=== PATIENT | female | born 1960 | race Caucasian/White ===

== ENCOUNTER 2024-12-06 15:50 | Emergency (ER) | payer MEDICARE, OTHER, SELFPAY ==
[2024-12-06] VITALS (17 sets, daily range): BP systolic 81–140; BP diastolic 50–69; BMI 24.5
--- NOTE | 2024-12-06 15:56 | ED.GENMED ---
History of Present Illness
General
Chief Complaint: Musculo-Skeletal Complaint
Source: patient
Exam Limitations: none
Time Seen by Provider: 12/06/24 15:54
History of Present Illness
History of Present Illness:
See MDM
Past History
Past History
ED Past Medical History: Seizures, Other (Lymes, transverse myelitis) and Other (OA)
ED Past Surgical History: Cholecystectomy, Orthopedic and Other (fistula repair early )
Social History
Tobacco: Non-smoker
Personal:
Living: with family
Employment: Disabled
Phy Exam
Physical Exam
Physical Exam:
See MDM
Course
Orders/Labs/Results
Orders:
Orders
12/06/24 15:54
HYDROmorphone [Dilaudid] 0.5 mg IV NOW STA
Hip, Right 2-3 Views [CR Hip - RT w/wo Pel 2-3 Vw*] Urgent
Comment:
Reason For Exam: R hip pain
Include a pelvis x-ray?: No
12/06/24 16:01
Propofol [Diprivan] 20 ml .ROUTE .STK-MED
12/06/24 17:20
HYDROmorphone [Dilaudid] 0.5 mg .ROUTE .STK-MED ONE
HYDROmorphone [Dilaudid] 0.5 mg IV NOW STA
12/06/24 19:16
CR Hip - RT without Pel 1 Vw Urgent
Reason For Exam: post reduction
Vital Signs
Initial and Last Documented VS:
Initial Vital Signs
BP
140/58
12/06/24 15:56
Last Documented Vital Signs
Temp Pulse Resp BP Pulse Ox
98.5 F 70 16 111/66 99
12/06/24 19:45 12/06/24 19:45 12/06/24 19:45 12/06/24 19:45 12/06/24 19:45
Procedures
Moderate Sedation
ASA Risk Score: Class II
Chart and allergies reviewed: Yes
Consent for anesthesia obtained: Yes
Time out completed (validating right patient & procedure): Yes
Moderate Sedation Start Time(when first medication is given): 19:05
History of difficult intubation: No
Airway free of obstruction: Yes
Patient has a gag reflex: Yes
Patient is able to open mouth: Yes
Patient has no dentures: Yes
Patient has no loose teeth: Yes
Medication administered by Provider during Moderate Sedation: IV Propofol (mg)
Total dose administered: 150
Time drug administered: :
Moderate Sedation Procedure End Time: :
Joint/Fracture Reduction
Right Anterior Lateral Hip:
Indication for procedure:: Right hip dislocation
Procedure completed by: Jose C Galvan DO
Consent form signed: Yes
Joint reduced: with anesthesia sedation
Injury was: closed
Further treatement: needs re-check only
Post reduction exam: stable
Capillary Refill: normal
Peripheral Pulses: dorsalis pedis (right): 2+
MDM/Problems Addressed
Differential Diagnosis Includes:
HPI and MDM Narrative:
64-year-old female presenting for evaluation of right hip pain. Patient was reaching over and she felt a pop in her right hip. She just had a hip replacement about 3 weeks ago. She denies numbness or tingling
On exam, patient has a shortened and internally rotated leg. Exam consistent with likely hip dislocation. Patient is requesting pain medicine. She has what appears to be allergies to narcotics but patient does not believe that the allergy is
true. Patient feels comfortable trying IV Dilaudid
Physical exam
General: Mildly uncomfortable
HEENT: protecting airway
Neck: appears supple
CV: No evidence of cyanosis
Resp: No accessory muscle use
Abd: Non-distended
Extremities: Shortened and internally rotated right leg. Distal extremity neurovascular intact
Neuro: alert
Psych: Normal affect
Skin: Intact
Problems Addressed including Acute and Chronic Conditions affecting care:
1. Right hip dislocation
Acuity: acute
Prognosis: unstable
Details: Will have patient sign consent for sedation and reduction
Updates
Patient tolerated sedation well and the procedure well. Postreduction film shows good reduction and patient feels comfortable going home. Knee immobilizer placed
Differential Diagnosis (but not limited to): Hip fracture, hip dislocation
Testing considered: Pelvic x-ray
Drug therapy (if applicable): OTC meds, please see d/c instruction regarding Rx drugs
Amount and/or Complexity of Data Reviewed
Clinical info obtained from: Patient
External data reviewed: N/A
Labs I independently reviewed (but not limited to): N/A
Radiology: X-ray independently reviewed: Dislocated right hip
Pulse Ox: not hypoxic
EKG independently reviewed: N/A
Filter Machine Operator: N/A
Critical Care: N/A
Risk of Complication:
Social Determinants of health: Good social support
Discussed with other providers: N/A
Escalation of Care includes Admit/Obs: After being observed in the Emergency Department, pt stable for discharge.
Occasional wrong word or 'sound a like' substitutions may have occurred due to the inherent limitations of voice recognition software. Read the chart carefully and recognize, using context, where substitutions have occurred.
*Critical Care Note
Total Time (30-74mins, 75-104mins- exclusive of procedures): Not Applicable
ED Attending Note
-
Portions of this chart may have been created with voice recognition software.� Occasional wrong word or��sound alike� substitutions may have occurred due to the inherent limitations of voice recognition software.
Discharge Plan
Departure
Patient Disposition: Home (Routine Discharge)
Date of Disposition: 12/06/24
Time of Disposition: 20:16
Patient with high blood pressure during this ER visit?: No
Discharge Problem:
Anterior dislocation of right hip
Instructions: Hip Dislocation (DC), MODERATE SEDATION ADULT
Prescriptions:
No Action
multivitamin [Multi-Day] 1 EACH tablet
1 tab PO DAILY
gabapentin 100 MG capsule
600 mg PO BID
atomoxetine [Strattera] 80 MG capsule
80 mg PO DAILY
venlafaxine 75 MG tablet
150 mg PO DAILY
etanercept [Enbrel] 50 MG/ML syringe
50 mg SQ TH
brivaracetam [Briviact] 100 MG tablet
100 mg PO BID
pantoprazole 40 MG tablet,delayed release (DR/EC)
40 mg PO DAILY
mupirocin 1 APPLIC ointment
1 applic intranasal BID Qty: 1 0RF
Patient Comments:
last dose was this am, 12/30/21
cefadroxil 500 MG capsule
500 mg PO Q12H Qty: 28 0RF
Rx Instructions:
1 every 12 hours x 14 days to prevent infection
Sent to [facility]
acetaminophen 325 MG tablet
650 mg PO Q4HWA 0RF
aspirin 325 MG tablet
325 mg PO DAILY 0RF
magnesium hydroxide 30 ML suspension
30 ml PO DAILYPRN PRN (Reason: constipation) 0RF
docusate sodium 100 MG capsule
100 mg PO BID 0RF
naproxen sodium [Aleve] 220 MG tablet
1 tab PO BID Qty: 0 0RF
Rx Instructions:
scheduled dosing x 7 days
take with food
oxycodone 5 MG tablet
5 mg PO Q6HPRN PRN (Reason: moderate-severe pain) Qty: 30 0RF
Rx Instructions:
1 tab moderate pain or 2 if pain severe
Dx total joint replacement
ongoing therapy
Saccharomyces boulardii [Florastor] 250 MG capsule
250 mg PO BID Qty: 1 0RF
Referrals:
Aakash Ramirez MD [Family Provider] -
Activity Restrictions/Additional Instructions:
Please return for any worsening symptoms.
You may return at any time if you have further concerns.
Please follow up with your orthopedist at the first available appointment, preferably this week.
Thank you for choosing [facility].
Interventions
Interventions:
*Risk Screen - Suicide Last Done: 12/06/24 15:53
*General Assessment Last Done: 12/06/24 15:53
*Neglect/Abuse Screening Last Done: 12/06/24 15:53
*ED COVID-19 Vaccine History Last Done: 12/06/24 19:20
ED-Musculoskeletal Assessment Last Done: 12/06/24 15:53
Discharge Date and Time
Print Language: AFGHAN
[2024-12-06] MEDS: DILAUDID 0.5 MG IV ×2 (16:05→17:21)
== END 2024-12-06 20:49 | disposition home or self-care (01) ==
LOC: EMR 15:50
PROVIDERS: EMERGENCY PHYSICIAN Student in an Organized Health Care Education/Training Program; FAMILY PHYSICIAN Orthopaedic Surgery
DX: T84.020A Dislocation of internal right hip prosthesis, initial encounter (principal); Y79.2 Prosthetic and other implants, materials and accessory orthopedic devices associated with adverse incidents; Z90.49 Acquired absence of other specified parts of digestive tract
CPT/HCPCS: 99152; 27265; 96374; 96376; 99285; 73501; 73502

== ENCOUNTER → 2025-01-13 08:32 | Day surgery (SDC) | payer MEDICARE, OTHER, SELFPAY ==
[2025-01-13] VITALS (27 sets, daily range): BP systolic 88–147; BP diastolic 35–112; BMI 24.3
[2025-01-13 03:00] LABS: % Basophils 0.8 % (0-2); % Eosinophils 2.4 % (0-6); % Immature Granulocytes 0.3 % (0-0.5); % Lymphocytes 44.5 % (20.5-51.1); Absolute Basophils 0.1 10^3/uL (0-0.2); Absolute Eosinophils 0.2 10^3/uL (0-0.7); Absolute Lymphocytes 2.8 10^3/uL (1.2-3.4); Absolute Monocytes 0.8 10^3/uL (0.1-0.6); Absolute Neutrophils 2.5 10^3/uL (1.4-6.5); Hematocrit 33.4 % (37.0-47.0); Hemoglobin 11.4 g/dL (12.0-16.0); Mean Corp Hgb Conc. 34.1 g/dL (33.0-37.0); Mean Corpuscular Hgb 34.1 pg (27.0-31.0); Nucleated Red Blood Cells % 0 %; Platelet Count 237 10^3/uL (130-400); Red Blood Cell Count 3.34 10^6/uL (4.20-5.40); Red Cell Dist. Width 12.1 % (11.5-14.5); White Blood Cell Count 6.3 10^3/uL (4.8-10.8)
[2025-01-13] MEDS: DILAUDID 1 MG IV ×2 (03:01→05:10)
[2025-01-13] MEDS: ZOFRAN 4 MG IV (03:02)
[2025-01-13 03:21] LABS: ALT (SGPT) 36 U/L (0-35); Albumin 4.4 g/dl (3.5-5.0); Blood Urea Nitrogen 22 mg/dl (7-17); Calcium 9.5 mg/dl (8.4-10.2); Carbon Dioxide 26 mmol/L (22-30); Chloride 108 mmol/L (98-107); Estimated Creatinine Clearance 58 ml/min; Glucose 99 mg/dl (70-99); Sodium 138 mmol/L (135-145); Total Bilirubin 0.5 mg/dl (0.2-1.3); Total Protein 6.4 g/dl (6.3-8.2); eGFR > 60.00
[2025-01-13 04:13] LABS: Potassium 4.4 mmol/L (3.5-5.1)
[2025-01-13 04:31] LABS: AST (SGOT) 43 U/L (14-36); Alkaline Phosphatase 92 U/L (38-126)
--- NOTE | 2025-01-13 04:32 | ED.GENMED ---
History of Present Illness
General
Chief Complaint: Musculo-Skeletal Complaint
Source: patient and spouse
Exam Limitations: none
Time Seen by Provider: 01/13/25 02:44
Nursing documentation reviewed up to this point in time: agreed with
History of Present Illness
History of Present Illness:
This a pleasant 64-year-old female who presents with right hip pain after probable dislocation. She was in bed and rolled over and felt her hip pop out of its socket. She had a hip replacement at the end of October of this year. She states that she
has had 1 other hip dislocation since the procedure. Patient denies any new trauma or any other issues with the hip.
Past History
Past History
ED Past Medical History: Seizures, Other (Lymes, transverse myelitis) and Other (OA)
ED Past Surgical History: Cholecystectomy, Orthopedic and Other (fistula repair early )
Social History
Tobacco: Non-smoker
Personal:
Living: with family
Employment: Disabled
Review of Systems
Review of Systems
Allergies reviewed?: Yes
Skin: Reports no symptoms
Psychiatric: Reports anxiety
Phy Exam
General Physical Exam
General Presentation: moderate distress
General age: appears stated age
General Skin: warm and dry
General Habitus: normal
General Mental: alert
General Hydration: appears well hydrated
ENT Exam
ENT Exam: EOMI, pharynx normal, neck supple and normocephalic
Eye Exam
Eye Exam: PERRL, cornea clear and conjunctiva normal
Cardiovascular Exam
Cardiovascular Exam: regular rate/rhythm, no edema and normal peripheral pulses
Pulmonary Exam
Pulmonary Exam: lungs clear, no respiratory distress, no rales, no crackles, no rhonchi, no stridor, no wheezing and no cough
Gastrointestinal Exam
Gastrointestinal Exam: normal bowel sounds, non tender, soft, no organomegaly, no pulsatile mass and non distended
Neurological Exam
Neurological Exam: alert, oriented x3, no motor deficits and speech normal
Musculoskeletal Exam
Musculoskeletal Exam: joint swelling and other (Limited range of motion in the right hip with leg shortening.)
Skin Exam
Skin Exam: normal color, warm/dry, no rash and no petechia
Psychiatric Exam
Psychiatric Exam: normal mood/affect
Course
Orders/Labs/Results
Orders:
Orders
01/13/25 02:45
CBC/With Diff [Complete Blood Count/With Diff] Urgent
Comprehensive Metabolic Panel Urgent
01/13/25 02:53
HYDROmorphone [Dilaudid] 1 mg IV NOW STA
Ondansetron Injectable [Zofran] 4 mg IV NOW STA
Hip, Right 2-3 Views [CR Hip - RT w/wo Pel 2-3 Vw*] Urgent
Comment:
Reason For Exam: hip doslocation
Include a pelvis x-ray?: Yes
01/13/25 03:19
Propofol [Diprivan] 20 ml .ROUTE .STK-MED
01/13/25 03:49
CR Hip - RT without Pel 1 Vw Urgent
Comment: portable
Reason For Exam: post reduction
01/13/25 05:00
HYDROmorphone [Dilaudid] 1 mg .ROUTE .STK-MED ONE
01/13/25 05:15
HYDROmorphone [Dilaudid] 1 mg IV NOW STA
01/13/25 06:00
Flush (0.9% Sodium Chloride) [Flush (Nss)] See Dose Instructions IV PER PROTOCOL
Abnormal Lab Results
01/13/25
02:45
RBC 3.34 L 10^6/uL
(4.20-5.40)
Hgb 11.4 L g/dL
(12.0-16.0)
Hct 33.4 L %
(37.0-47.0)
MCV 100.0 H fL
(81.0-99.0)
MCH 34.1 H pg
(27.0-31.0)
Absolute Monos (auto) 0.8 H 10^3/uL
(0.1-0.6)
Neutrophils % 40.0 L %
(42.2-75.2)
Monocytes % 12.0 H %
(1.7-9.3)
Chloride 108 H mmol/L
(98-107)
BUN 22 H mg/dl
(7-17)
AST 43 H U/L
(14-36)
ALT 36 H U/L
(0-35)
01/13/25 02:45
01/13/25 02:45
Vital Signs
Initial and Last Documented VS:
Initial Vital Signs
Temp Pulse Resp BP Pulse Ox
97.7 F 71 22 140/112 100
01/13/25 02:33 01/13/25 02:33 01/13/25 02:33 01/13/25 02:33 01/13/25 02:33
Last Documented Vital Signs
Temp Pulse Resp BP Pulse Ox
98.2 F 79 17 129/68 100
01/13/25 03:41 01/13/25 05:23 01/13/25 05:23 01/13/25 05:23 01/13/25 05:23
Procedures
Moderate Sedation
ASA Risk Score: Class II
Chart and allergies reviewed: Yes
Consent for anesthesia obtained: Yes
Time out completed (validating right patient & procedure): Yes
Moderate Sedation Start Time(when first medication is given): 03:43
History of difficult intubation: Yes
Airway free of obstruction: Yes
Patient has a gag reflex: Yes
Patient is able to open mouth: Yes
Patient has no dentures: Yes
Patient has no loose teeth: Yes
Medication administered by Provider during Moderate Sedation: IV Propofol (mg)
Total dose administered: 200
Time drug administered: 03:43
Moderate Sedation Procedure End Time: 04:08
Joint/Fracture Reduction
Right Hip:
Indication for procedure:: Right hip deformity
Procedure completed by: Myself
Consent form signed: Yes
Joint reduced: with anesthesia sedation
Anesthesia/sedation: 1% Lidocaine
Injury was: closed
Further treatement: needs further treatment
Post reduction exam: unstable
Capillary Refill: normal
*Pulse Oximetry
SaO2: 99
Oxygen Mode of Delivery: Room air
*Critical Care Note
Total Time (30-74mins, 75-104mins- exclusive of procedures): Not Applicable
Update Note
Update Note:
Spoke with Dr.Susan Mcclain, orthopedics who recommends that we keep patient comfortable she will be in to take the patient to the OR sometime this morning.
Note:
CHIEF COMPLAINT(S)
Hip dislocation
HISTORY OF PRESENT ILLNESS
The patient is a 64-year-old female presenting with a dislocated right hip. The exact onset and circumstances of the dislocation were not detailed. She currently reports significant pain in the affected hip. Initial management will include pain
control and imaging for further assessment.
PHYSICAL EXAM
- Musculoskeletal: Apparent dislocation of the right hip.
PLAN
- Administer pain medication.
- Obtain an X-ray of the right hip.
- Plan for reduction of the dislocated hip.
DIFFERENTIAL DIAGNOSIS
The Differential Diagnosis includes, in no particular order and is not limited to:
- Hip fracture
- Hip arthritis
- Avascular necrosis of the femoral head
- Femoral neck fracture
- Pelvic fracture
- Muscle strain or tear
- Ligament sprain
- Osteoporosis-related fracture
- Trochanteric bursitis
- Foreign body intrusion or trauma
Disposition:
SUMMARY OF ENCOUNTER
A 64-year-old female presents with a right hip dislocation. Attempts to reduce the dislocation in the emergency room were unsuccessful.
DISPOSITION
The patient will remain in the emergency department until transfer to the operating room for definitive treatment as arranged with the orthopedic team.
MANAGEMENT OF THE PATIENTS CARE WAS DISCUSSED WITH
Dr. Chelsea Mcclain from Orthopedics.
PLAN
Plan for the patient to undergo definitive treatment in the operating room.
MEDICAL DECISION MAKING
1. Number & Complexity of Problems: Acute condition - right hip dislocation.
2. Data Reviewed: Imaging likely reviewed prior to attempted reductions.
3. Risk: Consideration of admission/observation was made due to complexity/risk. The patient is awaiting surgical intervention based on current condition and communication with orthopedic specialists.
PATHOLOGIES TO CONSIDER
Hip fracture, femoral neck fracture, avascular necrosis of the femoral head due to the urgency in acquiring orthopedic intervention.
ED Attending Note
-
Portions of this chart may have been created with voice recognition software.� Occasional wrong word or��sound alike� substitutions may have occurred due to the inherent limitations of voice recognition software.
Discharge Plan
Departure
Patient Disposition: OR
Date of Disposition: 01/13/25
Time of Disposition: 04:34
Admit to: OR
Presentation/result/management discussed w/ accepting MD/DO: Dr Mcclain
Condition: Fair
Discharge Problem:
Hip dislocation, right
Prescriptions:
No Action
multivitamin [Multi-Day] 1 EACH tablet
1 tab PO DAILY
gabapentin 100 MG capsule
600 mg PO BID
atomoxetine [Strattera] 80 MG capsule
80 mg PO DAILY
venlafaxine 75 MG tablet
150 mg PO DAILY
etanercept [Enbrel] 50 MG/ML syringe
50 mg SQ TH
brivaracetam [Briviact] 100 MG tablet
100 mg PO BID
pantoprazole 40 MG tablet,delayed release (DR/EC)
40 mg PO DAILY
mupirocin 1 APPLIC ointment
1 applic intranasal BID Qty: 1 0RF
Patient Comments:
last dose was this am, 12/30/21
cefadroxil 500 MG capsule
500 mg PO Q12H Qty: 28 0RF
Rx Instructions:
1 every 12 hours x 14 days to prevent infection
Sent to [facility]
acetaminophen 325 MG tablet
650 mg PO Q4HWA 0RF
aspirin 325 MG tablet
325 mg PO DAILY 0RF
magnesium hydroxide 30 ML suspension
30 ml PO DAILYPRN PRN (Reason: constipation) 0RF
docusate sodium 100 MG capsule
100 mg PO BID 0RF
naproxen sodium [Aleve] 220 MG tablet
1 tab PO BID Qty: 0 0RF
Rx Instructions:
scheduled dosing x 7 days
take with food
oxycodone 5 MG tablet
5 mg PO Q6HPRN PRN (Reason: moderate-severe pain) Qty: 30 0RF
Rx Instructions:
1 tab moderate pain or 2 if pain severe
Dx total joint replacement
ongoing therapy
Saccharomyces boulardii [Florastor] 250 MG capsule
250 mg PO BID Qty: 1 0RF
Referrals:
Promise Preston DO [Family Provider, Internal Medicine]
Interventions
Interventions:
*Risk Screen - Suicide Last Done: 01/13/25 02:33
*General Assessment Last Done: 01/13/25 02:47
*Neglect/Abuse Screening Last Done: 01/13/25 02:33
*ED- Fall Risk Assessment Last Done: 01/13/25 02:47
ED-Musculoskeletal Assessment Last Done: 01/13/25 02:44
Discharge Date and Time
Print Language: UKRAINIAN
== END ==
LOC: EMR 02:30 → PACU 08:32
PROVIDERS: ATTENDING PHYSICIAN Orthopaedic Surgery; EMERGENCY PHYSICIAN Student in an Organized Health Care Education/Training Program; FAMILY PHYSICIAN Internal Medicine
DX: T84.020A Dislocation of internal right hip prosthesis, initial encounter (principal); Y79.2 Prosthetic and other implants, materials and accessory orthopedic devices associated with adverse incidents
CPT/HCPCS: 27266; 73501; 73502; 76000; 80053; 85025

== ENCOUNTER → 2025-01-15 15:30 | Outpatient (REF) | payer MEDICARE, OTHER, SELFPAY ==
[2025-01-15 17:30] LABS: Erythrocyte Sed Rate 9 mm/hour (0-20)
== END ==
LOC: RAD 15:30
PROVIDERS: ATTENDING PHYSICIAN Orthopaedic Surgery; FAMILY PHYSICIAN Internal Medicine
DX: Z96.641 Presence of right artificial hip joint (principal); M25.551 Pain in right hip
CPT/HCPCS: 36415; 73700; 85652